=== PATIENT | male | born 1955 | race African-American/Black ===

== ENCOUNTER 2022-04-14 04:27 | Day surgery (SDC) | payer OTHER ==
[2022-04-13 09:27] VITALS: BMI 25.4
[2022-04-14] MEDS ORDERED: LIDOCAINE HCL 1%, 10 MG/ML (20ML VIAL) ONE (11:52)
[2022-04-14] MEDS ORDERED: PROPOFOL 20 ML ONE ×2 (11:55)
[2022-04-14] MEDS ORDERED: DEXAMETHASONE SOD PHOSPHATE 4 MG/1 ML VIAL ONE (11:55)
[2022-04-14] MEDS ORDERED: MIDAZOLAM HCL 2 MG/2 ML SINGLE DOSE VIAL ONE ×3 (11:55→12:10)
[2022-04-14] MEDS ORDERED: GLYCOPYRROLATE 0.2 MG/1 ML VIAL ONE (11:55)
[2022-04-14] MEDS ORDERED: LIDOCAINE HCL/PF 2% SDV 5ML VIAL ONE (11:55)
[2022-04-14] MEDS ORDERED: KETOROLAC TROMETHAMINE 30 MG/1 ML VIAL ONE (11:55)
[2022-04-14] MEDS ORDERED: KETAMINE HCL 200 MG/20 ML VIAL ONE (11:56)
[2022-04-14] MEDS ORDERED: ROPIVACAINE HCL 0.5% 30ML VIAL ONE (11:56)
[2022-04-14] MEDS ORDERED: LIDOCAINE HCL 1%, 10 MG/ML (20ML VIAL) NR ONE (12:22)
[2022-04-14] MEDS ORDERED: ceFAZolin SODIUM 1 GM VIAL IVPB ONE (12:40)
[2022-04-14] MEDS ORDERED: ceFAZolin SODIUM 1 GM VIAL ONE (13:12)
[2022-04-14] MEDS ORDERED: SODIUM CHLORIDE 0.9% P/F 10 ML VIAL IJ ONE (13:12)
[2022-04-14] MEDS ORDERED: ONDANSETRON 4 MG/2 ML VIAL IVPUSH PRN (15:16)
[2022-04-14] MEDS ORDERED: oxyCODONE HCL 5 MG TABLET PO PRN ×2 (15:16)
[2022-04-14] MEDS ORDERED: LACTATED RINGERS SOLUTION 1,000 ML IV SCH (15:30)
[2022-04-14] MEDS ORDERED: BUPIVACAINE HCL/PF 0.25% (2.5MG/ML) 10 ML VIAL IJ ONE (15:33)
[2022-04-14 18:35] VITALS: BP 128/70; PULSE 78; TEMP 98.2
== END 2022-04-14 18:10 | disposition home or self-care (01) ==
LOC: JASUSAT 04:27
PROVIDERS: ATTEND Student in an Organized Health Care Education/Training Program
PROC: 0SRP0JZ Replacement of Right Toe Phalangeal Joint with Synthetic Substitute, Open Approach (ICD-10-PCS; 2022-04-14)
PROC: 0SGK0JZ Fusion of Right Tarsometatarsal Joint with Synthetic Substitute, Open Approach (ICD-10-PCS; principal; 2022-04-14 12:00)
DX: M20.11 Hallux valgus (acquired), right foot (principal); M20.41 Other hammer toe(s) (acquired), right foot; M77.51 Other enthesopathy of right foot and ankle
CPT/HCPCS: 28285; 28288; 28297; C1713; 73630-TC-RT-FY; 76000-TC-FY; 88304-TC; 88311-TC

== ENCOUNTER 2022-12-04 13:35 | Emergency (ER) | payer OTHER ==
[2022-12-04 13:54] VITALS: BP 161/89; PULSE 83; RESP 16; TEMP 97.4; BMI 26.7
[2022-12-04] MEDS ORDERED: ASPIRIN 325 MG TABLET ONE (14:36)
[2022-12-04] MEDS: ASPIRIN 81 MG CHEWABLE TABLETS PO ONE ×2 (14:44→14:47)
[2022-12-04] MEDS ORDERED: ASPIRIN 325 MG TABLET PO ONE (14:46)
[2022-12-04 15:06] LABS: HEMATOCRIT 45.4 % (35.4-49); HEMOGLOBIN 15.6 G/dL (11.7-16.9); MCH 30.6 pg (25.7-33.7); MCHC 34.3 g/dl (32.0-35.9); MEAN CELL VOLUME 89.2 fl (80-96); PLATELET COUNT 230.9 10^3/uL (134-434); RBC 5.09 10^6/uL (4.00-5.60); RDW 13.5 % (11.9-15.9); WHITE BLOOD COUNT 8.7 10^3/uL (4.0-10.8)
[2022-12-04 15:10] LABS: PLATELET ESTIMATE ADEQUATE
[2022-12-04 15:13] LABS: ALBUMIN 3.9 g/dl (3.4-5.0); BILIRUBIN,TOTAL 0.9 mg/dl (0.2-1); CALCIUM 8.4 mg/dl (8.5-10); CREATININE 1.1 mg/dl (0.55-1.3); TOT PROT 6.7 g/dl (6.4-8.2)
[2022-12-04] MEDS ORDERED: POTASSIUM CHLORIDE TABS 20 MEQ TABLET.ER (FP) PO ONE ×2 (15:18→15:27)
== END 2022-12-04 15:41 | disposition home or self-care (01) ==
LOC: FER 13:35
DX: R07.9 Chest pain, unspecified (principal)
CPT/HCPCS: 36415; 71046-TC-FY; 80053; 84484; 85027; 85730; 93005; 99285-25